=== PATIENT | female | born 1935 | race Caucasian/White ===

== ENCOUNTER 2019-05-08 04:36 | Emergency (ER) | payer OTHER ==
[~2019-05-08] VITALS: Ht 152.4 cm; Wt 53.1 kg
[~2019-05-08 04:36] MED LIST: ALER PO; ASPI81CH PO; B Complex1 EAC2 PO; FISH1000 PO; Glucosamine Ch1 EAC3 PO; LEVSOD50 PO; LISI5 PO; Lovastatin20 MG PO; METO25ER PO; Omeprazole20 M1; VITAMIN D-32000 UNIT PO
[2019-05-08] MEDS ORDERED: ATOR10 PO (04:58)
[2019-05-08] MEDS ORDERED: Elemental Calc600 MG PO (05:00)
[2019-05-08 05:04] LABS: BASOPHILS ABSOLUTE AUTO 0.07 K/mm3 (0.00-0.23); BASOPHILS PERCENT AUTO 1 % (0-2); EOSINOPHILS ABSOLUTE AUTO 0.81 K/mm3 (0.00-0.68); EOSINOPHILS PERCENT AUTO 10 % (0-6); Hematocrit 38.5 % (33.0-51.0); Hemoglobin 12.4 g/dL (11.5-16.0); IMMATURE GRAN ABSOLUTE AUTO 0.02 K/mm3 (0.00-0.10); IMMATURE GRAN PERCENT AUTO 0 % (0-1); LYMPHOCYTES ABSOLUTE AUTO 2.42 K/mm3 (0.84-5.20); LYMPHOCYTES PERCENT AUTO 31 % (21-46); MONOCYTES PERCENT AUTO 9 % (4-13); Mean Corpuscular HGB 32.3 pg (26.0-34.0); Mean Corpuscular HGB Conc 32.2 g/dL (31.5-36.5); Mean Corpuscular Volume 100 fL (80-100); Mean Platelet Volume 10.5 fL (9.1-12.4); NEUTROPHILS ABSOLUTE AUTO 3.79 K/mm3 (1.96-9.15); NEUTROPHILS PERCENT AUTO 48 % (41-73); Platelet Count 294 K/mm3 (150-400); RDW Coefficient Variation 12.7 % (11.7-14.2); RDW Standard Deviation 47.2 fL (35.1-46.3); Red Blood Cell Count 3.84 M/mm3 (3.80-5.20); White Blood Cell Count 7.81 K/mm3 (4.00-11.30)
[2019-05-08 05:21] LABS: Albumin, Blood 3.6 g/dL (3.4-5.0); Albumin/Globulin Ratio 1.1 (0.8-1.8); Bilirubin, Total 0.3 mg/dL (0.1-1.0); Bun/Creatinine Ratio 13.4 (12.0-20.0); Calcium, Blood 8.8 mg/dL (8.5-10.1); Creatinine, Blood 1.27 mg/dL (0.40-1.00); Globulin, Blood 3.3 g/dL (2.2-4.0); Potassium, Blood 3.5 mmol/L (3.5-5.5); Total Protein, Blood 6.9 g/dL (6.4-8.2)
[2019-05-08 05:30] LABS: Source, Urine Clean Catch
[2019-05-08 05:36] LABS: Bilirubin, Urine Neg (Neg); Blood, Urine 2+ (Neg); Glucose Qualitative, Urine Neg (Neg); Ketones, Urine Neg (Neg); Leukocyte Esterase, Urine 2+ (Neg); Nitrite, Urine Neg (Neg); Protein, Urine Neg (Neg); Specific Gravity, Urine 1.015 (1.003-1.022); Urobilinogen, Urine NORM (Normal)
[2019-05-08 05:44] LABS: Appearance, Urine Clear (Clear); Color, Urine Yellow (P-Yellow); Red Blood Cells, Urine 0-2 /hpf (0-2); Squamous Epithelial Cells Few /hpf (Few)
[2019-05-08 05:45] LABS: Bacteria Few /hpf
[2019-05-08] MEDS ORDERED: Motion Sickness25 M1 PO (06:01)
== END 2019-05-08 06:35 | disposition home or self-care (01) ==
LOC: ER 04:36
PROVIDERS: Emergency Medicine
DX: R42 Dizziness and giddiness (principal); Z88.2 Allergy status to sulfonamides; Z79.899 Other long term (current) drug therapy; Z79.82 Long term (current) use of aspirin; I10 Essential (primary) hypertension; E03.9 Hypothyroidism, unspecified; E78.00 Pure hypercholesterolemia, unspecified
CPT/HCPCS: 36415; 80053; 81001; 85025; 87086; 93005; 93010; 96360; 99284-25; J7030

== ENCOUNTER → 2020-11-19 | Outpatient (CLI) | payer OTHER ==
[~2020-11-19] MED LIST changes: +ATOR10 PO; +Elemental Calc600 MG PO; +Motion Sickness25 M1 PO
[2020-11-19 11:26] LABS: Protein, Urine Quantitative <5.0 mg/dL (0.0-11.9)
== END | disposition home or self-care (01) ==
LOC: PLD 10:00 → LAB SHORT 10:00 → LAB FUT 11-15 11:00
PROVIDERS: Internal Medicine Nephrology
DX: N18.30 Chronic kidney disease, stage 3 unspecified (principal); D63.1 Anemia in chronic kidney disease; N25.81 Secondary hyperparathyroidism of renal origin; E55.9 Vitamin D deficiency, unspecified; E78.00 Pure hypercholesterolemia, unspecified; R76.9 Abnormal immunological finding in serum, unspecified; R94.5 Abnormal results of liver function studies; R94.6 Abnormal results of thyroid function studies
CPT/HCPCS: 81050; 82043; 82570; 84156

== ENCOUNTER → 2021-10-14 | Outpatient (CLI) | payer OTHER ==
[2021-10-14 14:05] LABS: Albumin, Blood 3.2 g/dL (3.4-5.0); Anion Gap 7 mmol/L (6-16); Blood Urea Nitrogen 15 mg/dL (8-24); Bun/Creatinine Ratio 9.7 (12.0-20.0); CO2, Blood 26 mmol/L (21-32); Calcium, Blood 9.5 mg/dL (8.5-10.1); Chloride, Blood 105 mmol/L (98-108); Creatinine, Blood 1.54 mg/dL (0.40-1.00); Glomerular Filtration Rate 32 (60-); Glucose, Blood 92 mg/dL (70-99); Phosphorus, Blood 4.3 mg/dL (2.5-4.9); Potassium, Blood 4.3 mmol/L (3.5-5.5); Sodium, Blood 138 mmol/L (136-145)
== END ==
LOC: LAB SHORT 11:42 → LAB FUT 09-12 14:40
PROVIDERS: Internal Medicine Nephrology
DX: N18.30 Chronic kidney disease, stage 3 unspecified (principal); D63.1 Anemia in chronic kidney disease; N25.81 Secondary hyperparathyroidism of renal origin; E78.00 Pure hypercholesterolemia, unspecified; R76.9 Abnormal immunological finding in serum, unspecified; R94.5 Abnormal results of liver function studies; R94.6 Abnormal results of thyroid function studies; Z88.2 Allergy status to sulfonamides
CPT/HCPCS: 36415; 80069; 84443; 85018

== ENCOUNTER 2021-10-28 09:26 | Inpatient (IN) | payer OTHER ==
[~2021-10-28] VITALS: Ht 157.5 cm; Wt 50.5 kg
[2021-10-28 10:24] LABS: BASOPHILS ABSOLUTE AUTO 0.03 K/mm3 (0.00-0.23); BASOPHILS PERCENT AUTO 0 % (0-2); EOSINOPHILS ABSOLUTE AUTO 0.01 K/mm3 (0.00-0.68); EOSINOPHILS PERCENT AUTO 0 % (0-6); Hematocrit 33.5 % (33.0-51.0); IMMATURE GRAN ABSOLUTE AUTO 0.04 K/mm3 (0.00-0.10); IMMATURE GRAN PERCENT AUTO 0 % (0-1); LYMPHOCYTES PERCENT AUTO 7 % (21-46); MONOCYTES PERCENT AUTO 4 % (4-13); Mean Corpuscular HGB 31.3 pg (26.0-34.0); Mean Corpuscular HGB Conc 32.8 g/dL (31.5-36.5); Mean Corpuscular Volume 95 fL (80-100); Mean Platelet Volume 9.6 fL (9.1-12.4); NEUTROPHILS ABSOLUTE AUTO 8.47 K/mm3 (1.96-9.15); NEUTROPHILS PERCENT AUTO 88 % (41-73); Platelet Count 511 K/mm3 (150-400); RDW Coefficient Variation 12.3 % (11.7-14.2); RDW Standard Deviation 42.8 fL (35.1-46.3); Red Blood Cell Count 3.51 M/mm3 (3.80-5.20); White Blood Cell Count 9.65 K/mm3 (4.00-11.30)
[2021-10-28 11:00] LABS: Acetaminophen, Random 20.5 ug/mL (10.0-30.0); Alanine Aminotransfer (ALT/SGP 18 U/L (12-78); Albumin/Globulin Ratio 0.8 (0.8-1.8); Alk Phos 85 U/L (50-136); Anion Gap 8 mmol/L (6-16); Aspartate Aminotrans (AST/SGOT 21 U/L (12-37); Bilirubin, Total 0.3 mg/dL (0.1-1.0); Blood Urea Nitrogen 23 mg/dL (8-24); Bun/Creatinine Ratio 14.6 (12.0-20.0); CO2, Blood 26 mmol/L (21-32); Calcium, Blood 9.7 mg/dL (8.5-10.1); Chloride, Blood 103 mmol/L (98-108); Creatinine, Blood 1.58 mg/dL (0.40-1.00); Ethanol (Alcohol), Blood, Med <3 mg/dL; Globulin, Blood 3.9 g/dL (2.2-4.0); Glomerular Filtration Rate 31 (60-); Glucose, Blood 152 mg/dL (70-99); Salicylate <1.7 mg/dL (2.8-20.0); Sodium, Blood 137 mmol/L (136-145); Total Protein, Blood 6.9 g/dL (6.4-8.2)
[2021-10-28 11:18] LABS: Source, Urine Clean Catch
[2021-10-28 11:23] LABS: Appearance, Urine Clear (Clear); Bilirubin, Urine Neg (Neg); Blood, Urine 5+ (Neg); Color, Urine Yellow (P-Yellow); Glucose Qualitative, Urine Neg (Neg); Ketones, Urine 1+ (Neg); Leukocyte Esterase, Urine Neg (Neg); Nitrite, Urine Neg (Neg); Protein, Urine 3+ (Neg); Urobilinogen, Urine NORM (Normal)
[2021-10-28 11:36] LABS: White Blood Cells, Urine 0-2 /hpf (0-5)
[2021-10-28 11:37] LABS: Bacteria Few /hpf; Mucus Light (0-Heavy); Squamous Epithelial Cells Mod /hpf (Few)
[2021-10-28 11:38] LABS: Amorphous Light (0-Heavy); Granular Casts 0-2 /lpf (0); Hyaline Casts 0-2 /lpf (0-2)
[2021-10-28 11:41] LABS: U Amphetamine Screen Not Detected; U Barbituate Screen Not Detected; U Benzodiazapine Screen Not Detected; U Buprenorphine Screen Not Detected; U Cannabinoids Screen Not Detected; U Cocaine Screen Not Detected; U Methadone Screen Not Detected; U Methamphetamine Screen Not Detected; U Opiates Screen DETECTED; U Oxycodone Screen DETECTED; U Phencyclidine Screen Not Detected; U Propoxyphene Screen Not Detected
[2021-10-28 16:39] LABS: Hematocrit 32.4 % (33.0-51.0); Hemoglobin 10.7 g/dL (11.5-16.0)
--- NOTE | 2021-10-28 19:46 | NUR ---
ADMIT NOTE RECEIVED REPORT FROM FELECIA IN ED. PT TO ROOM AT APPROX 1515. PT ORIENTED TO ROOM AND CALL LIGHT. EDUCATED ON FALL RISK. PT A&Ox4; ANXIOUS BUT COOPERATIVE WITH CARE. PT CONCRETE; STATES SHE WILL BE LEAVING TOMORROW. PT EDUCATED ON SI HOLD AND THE NEED TO SEE DR MCCONNELL AND BE CLEARED, PT STATES "IM NOT PAYING TO SEE HIM". PT DENIES PAIN, CHEST PAIN, SOB, NAUSEA AND DIZZINESS. PT REPORTS HAVING HEMATEMESIS THIS AM WHEN SHE WOKE UP. PT REPORTS TAKING 10 NORCO LAST NIGHT, AND STATES "IT WAS A DUMB THING TO DO." PT DENIES SI AT THIS TIME. SPO2 >90% ON RA. PT AFIB 100'S. OTHER VSS. NO OTHER ACUTE CHANGES NOTED. REPORT GIVEN TO ONCOMING RN. CONFIRMED WITH REMOTE MONITORING THAT CAMERA IN ROOM IS ON.
--- NOTE | 2021-10-28 21:28 | NUR ---
RHYTHM CHANGE PER INVESTIGATION SPECIALIST, PT CONVERTED FROM NSR TO AFIB HR 103 AROUND 2035. PT CURRENTLY RESTING. WILL MONITOR.
[2021-10-28 22:01] LABS: Hematocrit 30.7 % (33.0-51.0); Hemoglobin 10.2 g/dL (11.5-16.0)
[2021-10-29 04:27] LABS: BASOPHILS ABSOLUTE AUTO 0.07 K/mm3 (0.00-0.23); BASOPHILS PERCENT AUTO 1 % (0-2); EOSINOPHILS ABSOLUTE AUTO 0.29 K/mm3 (0.00-0.68); EOSINOPHILS PERCENT AUTO 3 % (0-6); Hematocrit 31.8 % (33.0-51.0); Hemoglobin 10.5 g/dL (11.5-16.0); IMMATURE GRAN ABSOLUTE AUTO 0.02 K/mm3 (0.00-0.10); IMMATURE GRAN PERCENT AUTO 0 % (0-1); LYMPHOCYTES ABSOLUTE AUTO 1.45 K/mm3 (0.84-5.20); LYMPHOCYTES PERCENT AUTO 15 % (21-46); MONOCYTES ABSOLUTE AUTO 0.72 K/mm3 (0.16-1.47); MONOCYTES PERCENT AUTO 7 % (4-13); Mean Corpuscular HGB 31.3 pg (26.0-34.0); Mean Corpuscular Volume 95 fL (80-100); NEUTROPHILS ABSOLUTE AUTO 7.35 K/mm3 (1.96-9.15); NEUTROPHILS PERCENT AUTO 74 % (41-73); Platelet Count 511 K/mm3 (150-400); RDW Coefficient Variation 12.5 % (11.7-14.2); RDW Standard Deviation 43.7 fL (35.1-46.3); Red Blood Cell Count 3.36 M/mm3 (3.80-5.20)
--- NOTE | 2021-10-29 05:30 | NUR ---
SHIFT SUMMARY AOX4. CONVERTED IN/OUT OF AFIB & NSR T/O NIGHT, HR 80-116. HR TACHY c AMBULATION UP TO 140-160'S, DOESNT SUSTAIN & HR DECREASES BACK TO 80'S WHILE @REST. REST OF VITALS STABLE. DENIES N/V, SOB, PAIN. DENIES ANY SI THOUGHTS OR PLANS. AWAITING DR MCCONNELL CONSULT. DR HANSEN DC'D PROTONIX DRIP & PT REFUSED EGD. PT WANTING TO GO HOME TODAY. WCTM UNTIL DAY NURSE ASSUMES CARE.
[2021-10-29 05:39] LABS: Albumin, Blood 2.7 g/dL (3.4-5.0); Albumin/Globulin Ratio 0.8 (0.8-1.8); Bilirubin, Total 0.4 mg/dL (0.1-1.0); Bun/Creatinine Ratio 11.8 (12.0-20.0); Calcium, Blood 9.7 mg/dL (8.5-10.1); Creatinine, Blood 1.53 mg/dL (0.40-1.00); Globulin, Blood 3.4 g/dL (2.2-4.0); Potassium, Blood 4.2 mmol/L (3.5-5.5); Total Protein, Blood 6.1 g/dL (6.4-8.2)
--- NOTE | 2021-10-29 12:32 | NUR ---
Pt. was alert and responsive when visited. After implimenting theraputic listening the pt. revealed that she regretted taking the action that preciptated her admission to the hospital. Pastoral encouragement helped pt. assess the value of family, with the objective of regaining health. The pt. invited pastoral prayer.
[2021-10-29] MEDS ORDERED: ELIQUIS5 M2 PO (13:18)
--- NOTE | 2021-10-29 14:12 | NUR ---
DISCHARGE SUMMARY PT ALERT, ORIENTED x4. PT DENIES SUICIDAL IDEATION, REQUESTING TO GO HOME. PT HAD TELE PSYCH THIS AFTERNOON, CLEARED FOR SI; DR PAYNE NOTIFIED. PT DENIES PAIN, CHEST PAIN, SOB, [place] AND DIZZINESS. PER TELE THIS AM PT 130-140; CLARIFIED ORDERS FOR PO AND IV LOPRESSOR, CONTINUE WITH IV LOPRESSOR AND HOLD PO LOPRESSOR PER DR PAYNE. HR TRENDING DOWN TO 70-80'S PER TELE. OTHER VSS. NO OTHER ACUTE CHANGES NOTED. PT DISCHARGED BY ANOTHER RN.
== END 2021-10-29 13:40 | disposition home or self-care (01) | DRG 917 ==
LOC: ER 09:26 → PCU 12:53 → ERHOLD 12:53 → PCU 16:44
PROVIDERS: Student in an Organized Health Care Education/Training Program; ADMIT Family Medicine
DX: T40.2X2A Poisoning by other opioids, intentional self-harm, initial encounter (principal); K22.6 Gastro-esophageal laceration-hemorrhage syndrome; I48.92 Unspecified atrial flutter; C64.2 Malignant neoplasm of left kidney, except renal pelvis; T39.1X2A Poisoning by 4-Aminophenol derivatives, intentional self-harm, initial encounter; R41.82 Altered mental status, unspecified; F32.9 Major depressive disorder, single episode, unspecified; I48.91 Unspecified atrial fibrillation; D75.839 Thrombocytosis, unspecified; D64.9 Anemia, unspecified; E03.9 Hypothyroidism, unspecified; E11.22 Type 2 diabetes mellitus with diabetic chronic kidney disease; I12.9 Hypertensive chronic kidney disease with stage 1 through stage 4 chronic kidney disease, or unspecified chronic kidney disease; N18.30 Chronic kidney disease, stage 3 unspecified; E78.5 Hyperlipidemia, unspecified; Z66 Do not resuscitate; Z79.899 Other long term (current) drug therapy; Z88.2 Allergy status to sulfonamides; Z80.0 Family history of malignant neoplasm of digestive organs; Z85.820 Personal history of malignant melanoma of skin
CPT/HCPCS: 36415; 80053; 81001; 84439; 84443; 84481; 85014; 85018; 85025; 93005; 93010; 93306; 96365; 96366; 99285-25; A9270; C9113; G0480